=== PATIENT | female | born 1945 | race Caucasian/White ===

== ENCOUNTER 2022-03-27 17:57 | Inpatient (IN) | payer OTHER ==
[~2022-03-27] VITALS: Ht 154.9 cm; Wt 40.8 kg
[2022-03-27 18:02] VITALS: BP_SYST 149
--- NOTE | 2022-03-27 18:05 | NUR ---
DR. SHI AT BEDSIDE
--- NOTE | 2022-03-27 18:05 | NUR ---
Placed in room 3. Placed on monitor technician, blood pressure machine and pulse oximeter. To gown for exam. Side rails up. Report given to LAVELL MCKEON.
--- NOTE | 2022-03-27 18:10 | NUR ---
PATIENT FROM HOME COMPLAINING OF SHORTNESS OF BREATH TODAY AND FEELING HER HEARTBEAT FAST THE LAST 4 DAYS WELL. PATIENT TOOK INHALER TODAY WITH NO IMPROVEMENT. O2 SATURATION WAS MID 82 ON 6 L NC. PATIENT REPORTS THE LAST TIME SHE HAD A COPD EXACERBATION THIS BAD WAS 2005. PATIENT IS ABLE TO SPEAK FULL SENTENCES AND ANSWERING QUESTIONS APPROPRIATELY. PATIENT DENIES BLOOD THINNERS,CHEST PAIN, FEVER, CHILLS, NAUSEA, VOMITING, ABDOMINAL PAIN, URINARY SYMPTOMS, OR OTHER CONCERNS AT THIS TIME.
[2022-03-27] MEDS ORDERED: IPRATROPIUM/ALBUTEROL SULFATE 3 ML AMPUL.NEB (DUONEB) INH ONE ×2 (18:30→22:00)
[2022-03-27] MEDS ORDERED: methylPREDNISolone SOD SUCC/PF 62.5 MG/ML VIAL IVP ONE (18:30)
--- NOTE | 2022-03-27 18:43 | NUR ---
RT AT BEDSIDE FOR BREATHING TX. PATIENT SATING IN 92% NC ON 2 L.
--- NOTE | 2022-03-27 18:47 | NUR ---
# 20 gauge angiocath placed to rac. Use of asceptic technique. Opsite placed over site. Blood return noted. Blood for lab drawn from site. Flushed with 10 cc of normal saline. No evidence of infiltration noted. Patient tolerated well.
--- NOTE | 2022-03-27 18:50 | NUR ---
PATIENT REPORTS RELIEF AFTER BREATHING TX. 02 SATURATION IS 94% ON 2 L NC. PATIENT SPEAKING FULL SENTENCES. NO ACUTE DISTRESS NOTED.
[2022-03-27 18:54] LABS: BASOPHILS # (AUTO) 0.1 K/uL (0.0-0.2); BASOPHILS % (AUTO) 1.1 % (0.0-2.0); EOSINOPHILS % (AUTO) 0.2 % (0.0-4.0); HEMATOCRIT 37.4 % (36-48); HEMOGLOBIN 12.3 g/dL (12.0-16.0); LYMPHOCYTES # (AUTO) 0.4 K/uL (1.0-5.5); LYMPHOCYTES % (AUTO) 5.3 % (20.5-51.5); MEAN CORPUSCULAR HEMOGLOBIN 30 pg (27-31); MEAN CORPUSCULAR HGB CONC 33 % (32-36); MEAN CORPUSCULAR VOLUME 92 fL (79.0-98.0); MONOCYTES # (AUTO) 0.4 K/uL (0.0-1.0); MONOCYTES % (AUTO) 4.5 % (1.7-9.3); NEUTROPHILS % (AUTO) 88.9 % (40.0-70.0); PLATELET COUNT (AUTO) 480 K/uL (130-430); RED BLOOD CELL COUNT(AUTO) 4.08 MIL/uL (4.2-6.2); RED CELL DISTRIBUTION WIDTH 14.4 % (9.0-15.0); WHITE BLOOD COUNT (AUTO) 7.9 K/uL (4.8-10.8)
--- NOTE | 2022-03-27 19:12 | NUR ---
PATIENT ASLEEP IN [facility] WITH AT BEDSIDE. O2 SATURATION 81% WOKE UP PATIENT AND O2 SATURATION REMAINED THE SAME. DR. SHI NOTIFIED. NO ACUTE DISTRESS NOTED. RESP EVEN AND UNLABORED.
[2022-03-27 19:18] LABS: ANION GAP 5 (5-15); CALCIUM 8.5 mg/dL (8.4-11.0); CHLORIDE 100 mmol/L (98-107); CREATININE 0.98 mg/dL (0.55-1.30); GLUCOSE 147 mg/dL (70-99); POTASSIUM 4.9 mmol/L (3.5-5.1); SODIUM SERUM 137 mmol/L (136-145); UREA NITROGEN, BLOOD 27 mg/dL (8-21)
[2022-03-27 19:25] LABS: ALANINE AMINOTRANSFERASE 24 U/L (12-78); ALBUMIN 2.7 g/dL (3.4-4.8); ASPARTATE AMINOTRANSFERASE 26 U/L (10-37); TOTAL BILIRUBIN 0.1 mg/dL (0.0-1.0)
--- NOTE | 2022-03-27 19:28 | NUR ---
rec report from ALIVIA cortez
--- NOTE | 2022-03-27 19:35 | NUR ---
Pt resting in bed with at bedside. Pt awake, alert, and following commands. Pt is on NC at 2L with no signs of resp distress. Safety precautions in place and pt connected to monitor.
--- NOTE | 2022-03-27 19:35 | NUR ---
Report rec from Eboni MONTE. Pt is on NC at 2L with O2 sat at 80%. Respirations are even and unlabored with no signs of resp distress. Pt states that she does not feel short of breath and denies chest pain. Dr. Acevedo made aware of O2 sat. Pt made aware of possible admission and pt is refusing to stay. Pt is at bedside. Safety precautions are in place and pt connected to cardiac catheterization technologist.
--- NOTE | 2022-03-27 19:55 | NUR ---
CT consent form signed and completed. Information provided by the patient.
--- NOTE | 2022-03-27 19:56 | NUR ---
Pt to radiology via marina accompanied by staff.
--- NOTE | 2022-03-27 20:07 | NUR ---
Patient returned from radiology via gurney , accompanied by staff. Safety precautions in place.
--- NOTE | 2022-03-27 21:09 | NUR ---
I CALLED FAMILY MEMBER AND LEFT MESSAGE TO CALL BACK REGARDING PT AND PT'S WHO IS PRESENT IN ER.
--- NOTE | 2022-03-27 21:38 | NUR ---
Pt O2 sat continuing to drop to 70%. RT at bedside to apply BiPAP. O2 sat at 90% on BiPAP at 50%. Pt tolerating well.
[2022-03-27] MEDS ORDERED: cefTRIAXone 1 GM in D5W 50 ML IV ONE (22:00)
[2022-03-27] MEDS ORDERED: AZITHROMYCIN 250 MG TABLET PO ONE (22:00)
--- NOTE | 2022-03-27 22:00 | NUR ---
Lab at bedside drawing cultures.
[2022-03-27] MEDS ORDERED: METO25TA6 PO (22:10)
[2022-03-27] MEDS ORDERED: LISI40TA13 PO (22:10)
[2022-03-27] MEDS ORDERED: AMLO5TAB4 PO (22:11)
--- NOTE | 2022-03-27 22:11 | NUR ---
Medication reconciliation completed with information provided by patient. Any prior medication reconciliation on file was reviewed and corrected.
--- NOTE | 2022-03-27 22:11 | NUR ---
Admit bed requested Patient will be admitted to care of Admitted to ICU unit. Diagnosis Repiratory Failure, Pneumonia Inpatient (Yes or No) Yes Observation (Yes or No) No Orientation concerns or request close to nursing station (Yes or No) No Covid Status negative On vent or bipap No Isolation requirements No Needs a sitter no From Home (Yes or if No enter name of facility) yes Requires Dialysis (Yes or No) No Med Rec Completed (Yes of No) Yes
[2022-03-27] MEDS: D5/0.45 NS 1,000 ML IV SCH (22:15)
[2022-03-27] MEDS ORDERED: cefTRIAXone 1 GM VIAL ONE (22:26)
[2022-03-27] MEDS ORDERED: MORPHINE 4 MG INJ. 4 MG/ML VIAL IVP PRN (22:45)
[2022-03-27] MEDS ORDERED: ONDANSETRON HCL 4 MG/2 ML VIAL IVP PRN (22:45)
[2022-03-27] MEDS ORDERED: NALOXONE HCL 0.4 MG/ML AMP (NARCAN) IVP PRN (22:45)
[2022-03-27] MEDS ORDERED: MORPHINE 2 MG/ML INJ. SYRINGE IVP PRN (22:45)
[2022-03-27] MEDS ORDERED: LORazepam 2 MG/ML VIAL IVP PRN (22:45)
--- NOTE | 2022-03-27 23:01 | NUR ---
Pt resting bed awake. She is A&Ox4 and follows simple commands. Pt tolerating BiPAP set at 50%, O2 sat is at 97%.
--- NOTE | 2022-03-27 23:25 | NUR ---
Patient will be admitted to care of Dr. Rodgers. Admitted to ICU unit. Will go to room 4. Belongings list completed. Complete and up to date summary report printed. SBAR report given to Kem MONTE at bedside with opportunity for questions.
--- NOTE | 2022-03-27 23:30 | NUR ---
Received patient from ER to ICU bed 4. Patient is on the bipap and have no signs or symptoms of respiratory distress.
[2022-03-28] VITALS (24 sets, daily range): BP systolic 90–121
[2022-03-28 06:00] LABS: BASOPHILS % (AUTO) 0.5 % (0.0-2.0); EOSINOPHILS # (AUTO) 0.1 K/uL (0.0-0.4); EOSINOPHILS % (AUTO) 1.3 % (0.0-4.0); HEMATOCRIT 35.3 % (36-48); HEMOGLOBIN 11.4 g/dL (12.0-16.0); LYMPHOCYTES # (AUTO) 0.3 K/uL (1.0-5.5); LYMPHOCYTES % (AUTO) 6.3 % (20.5-51.5); MEAN CORPUSCULAR HEMOGLOBIN 30 pg (27-31); MEAN CORPUSCULAR HGB CONC 32 % (32-36); MEAN CORPUSCULAR VOLUME 92 fL (79.0-98.0); MONOCYTES # (AUTO) 0.1 K/uL (0.0-1.0); MONOCYTES % (AUTO) 1.1 % (1.7-9.3); NEUTROPHILS # (AUTO) 4.9 K/uL (1.8-7.7); NEUTROPHILS % (AUTO) 90.8 % (40.0-70.0); PLATELET COUNT (AUTO) 447 K/uL (130-430); RED BLOOD CELL COUNT(AUTO) 3.85 MIL/uL (4.2-6.2); RED CELL DISTRIBUTION WIDTH 14.6 % (9.0-15.0); WHITE BLOOD COUNT (AUTO) 5.3 K/uL (4.8-10.8)
[2022-03-28 06:17] LABS: ALANINE AMINOTRANSFERASE 24 U/L (12-78); ALBUMIN 2.1 g/dL (3.4-4.8); ANION GAP 4 (5-15); ASPARTATE AMINOTRANSFERASE 16 U/L (10-37); CALCIUM 8.4 mg/dL (8.4-11.0); CHLORIDE 102 mmol/L (98-107); CREATININE 0.77 mg/dL (0.55-1.30); GLUCOSE 131 mg/dL (70-99); PHOSPHORUS 5.1 mg/dL (2.7-4.5); POTASSIUM 5.2 mmol/L (3.5-5.1); SODIUM SERUM 139 mmol/L (136-145); TOTAL BILIRUBIN 0.2 mg/dL (0.0-1.0); UREA NITROGEN, BLOOD 23 mg/dL (8-21)
--- NOTE | 2022-03-28 07:15 | NUR ---
RECEIVED PATIENT IN BED #4 STABLE, IN NAD, VSS, AAOX3, REMAINS ON BIPAP WITH IPAP OF 10, EPAP OF 5, ON 50% FIO2. PT COMMUNICATES WELL, REQUESTING ASSISTANCE TO BEDPAN, ASKING HOW IS, HE IS ADMITTED WELL TO THE HOSPITAL. PT AWAITING ADDITIONAL ASSESSMENTS AND MD ROUNDING TO DETERMINE DISPOSITION WITH PLAN OF CARE.
[2022-03-28] MEDS: IPRATROPIUM BROM 0.5 MG/2.5 ML VIAL.NEB (ATROVENT) INH SCH ×5 (07:25→23:05)
[2022-03-28] MEDS: ALBUTEROL SULFATE 0.083% 2.5 MG/3 ML VIAL.NEB INH SCH ×5 (07:25→23:05)
--- NOTE | 2022-03-28 08:00 | NUR ---
NINA MAGANA AT BEDSIDE FOR ASSESSMENT.
[2022-03-28] MEDS: D5/0.45 NS 1,000 ML IV SCH ×2 (08:05→17:34)
--- NOTE | 2022-03-28 08:10 | NUR ---
RT NOTES tried pt off of bipap to 3L O2, exh. CO2 75 despite pt being awake. Will try again later. Dr Knapp was rounding, made aware, stated to try pt off of bipap later, as long as pt is awake, ok to keep off.
[2022-03-28] MEDS: BUDESONIDE 0.5 MG/2 ML AMPUL.NEB INH SCH ×2 (10:00→20:05)
--- NOTE | 2022-03-28 10:20 | NUR ---
PT REQUESTING BEDPAN. PT ABLE TO LIFT HIPS UP TO DO SO.
--- NOTE | 2022-03-28 11:35 | NUR ---
RT NOTES Pt is alert/oriented, educated on deep breathing exercises. Per Dr's order, took pt off of BIPAP and placed on 3L Nc. Exh. CO2 53. Will monitor pt.
[2022-03-28] MEDS: methylPREDNISolone SOD SUCC/PF 62.5 MG/ML VIAL IVP SCH ×2 (13:20→21:46)
--- NOTE | 2022-03-28 14:25 | NUR ---
MARINE STEAM FITTER HELPER AT BEDSIDE FOR ASSISTANCE WITH PLACEMENT OF .
--- NOTE | 2022-03-28 14:30 | NUR ---
Php Programmer SIEVE REPAIRER Jessenia responded to a Social Service Consult request for " has dementia and unable to take care of him" from Dr. Rodgers. Prior to patient contact, MESERET Carter met with SALES ORDER CLERK Thuan who shared patient's was currently in [facility]. SIEVE REPAIRER Jessenia met with patient at bedside. Patient was awake, alert and orientated x4. SIEVE REPAIRER completed introductions, reason for consult and provided business card. Patient was open to contact. Current concern- Patient currently resides in a home with her Yandel Najera who has been diagnosed with Dementia. Social- Patient has 2 children. Her son Olayinka supports patient and her by checking in with them and visiting frequently. Daughter Johanne resides outside of the home, but according to patient is not able to help due to being confined to a wheelchair after a stroke about 10 years ago. Safety- At this time the patient shares she feels safe knowing her is in the hospital. She has also requested caregiver resources. Patient shared she is still driving, and transports self and to medical appointments and to obtain household needs. In an effort to assess for appropriate resources, SIEVE REPAIRER inquired into income to which she shared she receives SSI and pension from [employer]. SIEVE REPAIRER informed her if home health is not ordered, caregiving would be private pay. SIEVE REPAIRER also explored the patient's being connected to a healthcare social worker at [facility] for additional resources. SIEVE REPAIRER encouraged patient to discuss needing more time with son to help out in the home with patient's husbands needs. Patient also provided permission to contact son to discuss opportunities for additional support. SIEVE REPAIRER and patient discussed caregiver strain and impact on personal health. SIEVE REPAIRER again encouraged patient to obtain familial support to address both her and her husbands needs to decrease impact of stress on her own health and to address her own needs. SIEVE REPAIRER will continue to be available as needed.
[2022-03-28] MEDS: AZITHROMYCIN 500 MG in NS 250 ML IV SCH (21:44)
[2022-03-28] MEDS: cefTRIAXone 1 GM IVPB PREMIX 50 ML IV SCH (21:45)
[2022-03-29] VITALS (22 sets, daily range): BP systolic 102–132
[2022-03-29] MEDS: ALBUTEROL SULFATE 0.083% 2.5 MG/3 ML VIAL.NEB INH SCH ×6 (03:10→23:00)
[2022-03-29] MEDS: IPRATROPIUM BROM 0.5 MG/2.5 ML VIAL.NEB (ATROVENT) INH SCH ×6 (03:11→23:00)
[2022-03-29] MEDS: methylPREDNISolone SOD SUCC/PF 62.5 MG/ML VIAL IVP SCH ×3 (05:50→22:26)
[2022-03-29 06:23] LABS: ANION GAP 4 (5-15); CHLORIDE 103 mmol/L (98-107); CREATININE 0.79 mg/dL (0.55-1.30); GLUCOSE 173 mg/dL (70-99); POTASSIUM 4.1 mmol/L (3.5-5.1); SODIUM SERUM 140 mmol/L (136-145); UREA NITROGEN, BLOOD 17 mg/dL (8-21)
[2022-03-29] MEDS: BUDESONIDE 0.5 MG/2 ML AMPUL.NEB INH SCH ×2 (07:00→20:00)
--- NOTE | 2022-03-29 07:00 | NUR ---
Opening Note Received report bedside via SBAR from acrobatic dancer nurse. Patient is awake and alert to person, place, time, and event. Current drips are D5 0.45NS at 100ml/hour infusing in a Right AC 20 gauge IV. The patient is currently on room air via nasal cannula at 4L/min. Patient respirations are normal and unlabored. Skin is intact and foam dressing is applied prophylactically. Patient is pleasant and has no concerns at the moment.
[2022-03-29 07:44] LABS: BASOPHILS % (AUTO) 0.1 % (0.0-2.0); HEMATOCRIT 35.6 % (36-48); HEMOGLOBIN 11.4 g/dL (12.0-16.0); LYMPHOCYTES # (AUTO) 0.4 K/uL (1.0-5.5); LYMPHOCYTES % (AUTO) 4.1 % (20.5-51.5); MEAN CORPUSCULAR HEMOGLOBIN 30 pg (27-31); MEAN CORPUSCULAR HGB CONC 32 % (32-36); MEAN CORPUSCULAR VOLUME 93 fL (79.0-98.0); MONOCYTES # (AUTO) 0.3 K/uL (0.0-1.0); MONOCYTES % (AUTO) 2.9 % (1.7-9.3); NEUTROPHILS # (AUTO) 8.1 K/uL (1.8-7.7); NEUTROPHILS % (AUTO) 92.9 % (40.0-70.0); PLATELET COUNT (AUTO) 460 K/uL (130-430); RED BLOOD CELL COUNT(AUTO) 3.85 MIL/uL (4.2-6.2); RED CELL DISTRIBUTION WIDTH 14.2 % (9.0-15.0); WHITE BLOOD COUNT (AUTO) 8.7 K/uL (4.8-10.8)
[2022-03-29 07:56] LABS: C-REACTIVE PROTEIN QUANT 2.1 mg/dL (0-0.5)
[2022-03-29 10:30] LABS: ERYTHROCYTE SEDIMENTATION RATE 30 MM/HR (0-20)
[2022-03-29] MEDS: NORMAL SALINE 5 ML DISP.SYRIN IVF SCH ×2 (13:35→22:27)
--- NOTE | 2022-03-29 14:27 | NUR ---
Dietitian Recommendations * 2 gm Na diet, Ensure Enlive TID (ONS yields 1050 kcal/day, 60 gm protein/day) * Encourage increase PO intakes LP, RD Please refer to Nutrition Assessment for details. Addendum: 03/29/22 at [address] Amended: Links added.
--- NOTE | 2022-03-29 19:30 | NUR ---
Patient Transferred to Telemetry Room 101A for alternate level of care. Patient tolerated transfer without incident. Continue to monitor.
--- NOTE | 2022-03-29 20:00 | NUR ---
ADMITTED THIS TRANSFER FROM ICU. AAOX5. COOPERATIVE. NO DISTRESS NOTED. VS CHECKED AND RECORDED. ABLE TO MAKE NEEDS KNOWN. KEPT WARM AND COMFORTABLE ON BED. IV WAS OUT REINSERTED TO LEFT FOREARM. NO COMPLAINTS MADE. DUE MEDS GIVEN AT 2100. TOLERATED WELL. ALL NEEDS ATTENDED. CALL LIGHTS PLACED WITHIN REACH. MONITORED CLOSELY.
[2022-03-29] MEDS: cefTRIAXone 1 GM IVPB PREMIX 50 ML IV SCH (20:28)
[2022-03-29] MEDS: AZITHROMYCIN 500 MG in NS 250 ML IV SCH (20:34)
[2022-03-30] VITALS (7 sets, daily range): BP systolic 100–136
[2022-03-30] MEDS: IPRATROPIUM BROM 0.5 MG/2.5 ML VIAL.NEB (ATROVENT) INH SCH ×6 (03:00→23:00)
[2022-03-30] MEDS: ALBUTEROL SULFATE 0.083% 2.5 MG/3 ML VIAL.NEB INH SCH ×6 (03:00→23:00)
--- NOTE | 2022-03-30 06:00 | NUR ---
Patient is asleep the whole night. Woke up several times to void. Uses bedpan. Inserted new PIV to left AC. Tolerated procedure well. No distress. AAox4. Repositioned self to sides independently. No discomfort noted. Kept warm and comfortable. All needs attended. Call light placed within reach. Monitored closely.
[2022-03-30] MEDS: NORMAL SALINE 5 ML DISP.SYRIN IVF SCH ×3 (06:13→21:26)
[2022-03-30] MEDS: methylPREDNISolone SOD SUCC/PF 62.5 MG/ML VIAL IVP SCH ×3 (06:13→21:27)
[2022-03-30 06:36] LABS: BASOPHILS % (AUTO) 0.1 % (0.0-2.0); HEMATOCRIT 37.7 % (36-48); HEMOGLOBIN 12.3 g/dL (12.0-16.0); LYMPHOCYTES # (AUTO) 0.3 K/uL (1.0-5.5); LYMPHOCYTES % (AUTO) 2.9 % (20.5-51.5); MEAN CORPUSCULAR HEMOGLOBIN 30 pg (27-31); MEAN CORPUSCULAR HGB CONC 33 % (32-36); MEAN CORPUSCULAR VOLUME 91 fL (79.0-98.0); MONOCYTES # (AUTO) 0.3 K/uL (0.0-1.0); MONOCYTES % (AUTO) 2.1 % (1.7-9.3); NEUTROPHILS # (AUTO) 11.3 K/uL (1.8-7.7); NEUTROPHILS % (AUTO) 94.9 % (40.0-70.0); PLATELET COUNT (AUTO) 474 K/uL (130-430); RED BLOOD CELL COUNT(AUTO) 4.13 MIL/uL (4.2-6.2); RED CELL DISTRIBUTION WIDTH 13.9 % (9.0-15.0); WHITE BLOOD COUNT (AUTO) 11.9 K/uL (4.8-10.8)
--- NOTE | 2022-03-30 08:00 | NUR ---
NOTES PATIENT AAOX 4. VITALS SIGNS STABLE. AFEBRILE. HAS OXYGEN 4 LITERS VIA NASAL CANNULA. O2 SAT 97%. LUNGS BILATERALLY WITH RHONCHI AND DIMINISHED AT THE BASES. ABDOMEN SOFT AND NON DISTENDED. HAS BREATHING TREATMENT ORDERED. CALL LIGHTS WITHIN REACH. BED LOW POSITION, ALARMED AND LOCKED. HAS IV ACCESS ON THE LEFT FROEARM #20 SALINE LOCKED. WILL CONTINUE TO MONITOR.
[2022-03-30 08:15] LABS: ALANINE AMINOTRANSFERASE 20 U/L (12-78); ALBUMIN 2.6 g/dL (3.4-4.8); ANION GAP 4 (5-15); ASPARTATE AMINOTRANSFERASE 15 U/L (10-37); C-REACTIVE PROTEIN QUANT 0.8 mg/dL (0-0.5); CALCIUM 9.1 mg/dL (8.4-11.0); CHLORIDE 104 mmol/L (98-107); CREATININE 0.84 mg/dL (0.55-1.30); GLUCOSE 126 mg/dL (70-99); SODIUM SERUM 142 mmol/L (136-145); TOTAL BILIRUBIN 0.3 mg/dL (0.0-1.0); UREA NITROGEN, BLOOD 26 mg/dL (8-21)
[2022-03-30] MEDS: BUDESONIDE 0.5 MG/2 ML AMPUL.NEB INH SCH ×2 (08:18→20:40)
--- NOTE | 2022-03-30 09:00 | NUR ---
NO DUE MEDS GIVEN AT THIS TIME.
[2022-03-30 10:56] LABS: ERYTHROCYTE SEDIMENTATION RATE 26 MM/HR (0-20)
--- NOTE | 2022-03-30 14:28 | NUR ---
PHYSICAL THERAPY: PATIENT WAS SEEN EARLIER FOR EVALUATION. SHE REQUIRES SUPERVISED USE OF THE FWW DURING GAIT AND TRANSFERS. CONTINUOUS O2 AT 3 LITERS. PATIENT IS SAFE TO AMBULATE WITH NURSING ASSISTANCE. SHE SHOULD USE THE FWW FOR STABILITY.
--- NOTE | 2022-03-30 14:58 | NUR ---
SOLUMEDROL 40 MG IV GIVEN. MADE COMFORTABLE
--- NOTE | 2022-03-30 16:05 | NUR ---
PATIENT RESTING NO PAIN NOR DISCOMFORT NOTED.
--- NOTE | 2022-03-30 18:00 | NUR ---
NO COMPLAINED MADE. PATIENT EATING DINNER. STABLE.
--- NOTE | 2022-03-30 19:00 | NUR ---
ENDORSED TO INCOMING NURSE FRANKLIN MONTE.
[2022-03-30] MEDS: cefTRIAXone 1 GM IVPB PREMIX 50 ML IV SCH (20:26)
[2022-03-30] MEDS: AZITHROMYCIN 500 MG in NS 250 ML IV SCH (21:25)
[2022-03-31] VITALS: BP_SYST 130
[2022-03-31] MEDS: IPRATROPIUM BROM 0.5 MG/2.5 ML VIAL.NEB (ATROVENT) INH SCH ×6 (03:00→22:27)
[2022-03-31] MEDS: ALBUTEROL SULFATE 0.083% 2.5 MG/3 ML VIAL.NEB INH SCH ×6 (03:00→22:27)
[2022-03-31 04:00] VITALS: BP_SYST 122
[2022-03-31] MEDS: NORMAL SALINE 5 ML DISP.SYRIN IVF SCH ×3 (06:00→21:05)
[2022-03-31] MEDS: methylPREDNISolone SOD SUCC/PF 62.5 MG/ML VIAL IVP SCH ×3 (06:00→21:06)
--- NOTE | 2022-03-31 06:15 | NUR ---
PATIENT ASLEEP THE WHOLE NIGHT WITH BOUTS OF GOING TO THE RESTROOM. NOTED PATIENT WITH LOOSE STOOLS AND SHE IS CONTINENT AND GOING TO THE RESTROOM WITH ASSIST. NO FALLS OCCURRED DURING THE SHIFT. AFEBRILE. VS STABLE. NO DISTRESS NOTED. o2 SATURATION RANGES BETWEEN 88-92%. TOLERATED iv ANTIBIOTICS WITH NO ADR NOTED. PIV REINSERTED TO RIGHT FOREARM TOLERATED PROCEDURE WELL. COMFORTABLE ON BED. ALL NEEDS ATTENDED. CALL LIGHT PLACED WITHIN REACH. MONITORED CLOSELY.
[2022-03-31 06:23] LABS: BASOPHILS % (AUTO) 0.1 % (0.0-2.0); HEMATOCRIT 37.2 % (36-48); HEMOGLOBIN 12.1 g/dL (12.0-16.0); LYMPHOCYTES # (AUTO) 0.3 K/uL (1.0-5.5); LYMPHOCYTES % (AUTO) 2.8 % (20.5-51.5); MEAN CORPUSCULAR HEMOGLOBIN 30 pg (27-31); MEAN CORPUSCULAR HGB CONC 32 % (32-36); MEAN CORPUSCULAR VOLUME 92 fL (79.0-98.0); MONOCYTES # (AUTO) 0.2 K/uL (0.0-1.0); MONOCYTES % (AUTO) 2.1 % (1.7-9.3); PLATELET COUNT (AUTO) 418 K/uL (130-430); RED BLOOD CELL COUNT(AUTO) 4.07 MIL/uL (4.2-6.2); RED CELL DISTRIBUTION WIDTH 14.4 % (9.0-15.0); WHITE BLOOD COUNT (AUTO) 9.5 K/uL (4.8-10.8)
[2022-03-31 07:06] LABS: ANION GAP 1 (5-15); CALCIUM 8.7 mg/dL (8.4-11.0); CHLORIDE 104 mmol/L (98-107); CREATININE 0.77 mg/dL (0.55-1.30); GLUCOSE 112 mg/dL (70-99); POTASSIUM 4.5 mmol/L (3.5-5.1); SODIUM SERUM 143 mmol/L (136-145); UREA NITROGEN, BLOOD 35 mg/dL (8-21)
[2022-03-31] MEDS: BUDESONIDE 0.5 MG/2 ML AMPUL.NEB INH SCH ×2 (07:18→20:25)
[2022-03-31 07:35] LABS: C-REACTIVE PROTEIN QUANT < 0.2 mg/dL (0-0.5)
[2022-03-31 08:00] VITALS: BP_SYST 134
--- NOTE | 2022-03-31 08:00 | NUR ---
Initial Notes Patient is awake, alert, and oriented. Patient is able to ambulate to restroom. Vital signs obtained, patient on 3L O2 via Nasal cannula. Spo2 is 99%. No complaints of pain. No respiratory distress noted. Patient is eating breakfast. Safety precautions in place and call light within reach. Patient aware to call for assistance.
[2022-03-31 11:28] LABS: ERYTHROCYTE SEDIMENTATION RATE 16 MM/HR (0-20)
[2022-03-31 12:00] VITALS: BP_SYST 124
--- NOTE | 2022-03-31 12:00 | NUR ---
Nutrition F/U Admitting Diagnosis Respiratory failure, pneumonia Reviewed Pertinent Medical/Surgical Hx Medical Record Other Medical History Comment: PMH: COPD/interstitial lung Dz and HTN per physician notes SARS-CoV-2 Ag (Rapid) Negative 03/27 Subjective Information: RD met w/ pt at bedside this afternoon. Pt reported OK appetite and avoidance of high-fiber foods d/t diarrhea the past 3 days, which seems to be lessening. Pt reported that she is enjoying Ensure Enlive and would like to continue ONS. Pt reported current diet texture is fine, no difficulties w/ chewing/swallowing. Per EMR review, PO intake average of 73% x5 meal records; LBM x3 03/30, loose stools overnight noted; Kameron scale: 19 w/ erythema and rash on proximal buttocks. Current diet is adequate/appropriate. Nutrition education declined when offered by this RD. Current Diet Order/Nutrition Support: 2 gm Na, Ensure Enlive TID x2 days Patient/Significant Other Able To Verbalize Education Provided Not Indicated Pertinent Medications:azithromycin/NS IV, solu-medrol Pertinent Labs: BG 112 H, CRP <0.2 WNL, BUN 35 H Height (Feet) 5 feet Height (Inches) 1.00 inches Weight (Pounds) 90 pounds -- stable since 03/29 Patient Weight 40.823 kg Body Mass Index 17.00 kg/m2 %IBW 86 [place]/Adjusted Body Weight 105#/47.7 kg Recent Weight Change Unable to verify Weight Status Underweight Food Allergies Unable to verify Estimated Energy Expenditure (kcals/day) 9432-2909 (30-35 kcal/kg IBW d/t COPD, wt gain promotion) Estimated Protein Required (g/day) 62-95 (1.3-2 gm/kg IBW d/t COPD, wt gain promotion) Estimated Fluid Required (l/day) 1-1.2 (25-30 ml/kg CBW d/t GERIAT maintenance) Problem/Etiology/Signs/Symptoms Risk for malnutrition R/T catabolic condition AEB Hx of COPD, increased nutritional needs for COPD, BMI: 17 kg/m2, and 86% of IBW. *Ongoing, improvement w/ fair PO intake records Expected Outcomes/Goals - Monitor appetite and PO intakes w/ goal of pt meeting >75% of estimated nutritional needs, labs trending WNL, normal GI function, and skin integrity/wt maintenance Dietitian Recommendations * Continue 2 gm Na diet, Ensure Enlive TID (ONS yields 1050 kcal/day, 60 gm protein/day) * Encourage increase PO intakes Follow Up Moderate Risk: F/U in 3-5 days
--- NOTE | 2022-03-31 12:00 | NUR ---
Dietitian Recommendations * Continue 2 gm Na diet, Ensure Enlive TID (ONS yields 1050 kcal/day, 60 gm protein/day) * Encourage increase PO intakes LP, RD Please refer to Nutrition F/U for details.
--- NOTE | 2022-03-31 13:00 | NUR ---
Notes Assisted patient to restroom, tolerated well. Patient SPo2 at 93- 94% on 3L O2 via nasal cannula. No distress or pain. Patient back in bed, Safety precautions in place and call light in hand.
[2022-03-31 16:00] VITALS: BP_SYST 117
--- NOTE | 2022-03-31 16:00 | NUR ---
Notes Patient is resting, eyes closed. No respiratory distress noted. No facial grimace noted. Safety precautions in place and call light within reach.
--- NOTE | 2022-03-31 18:30 | NUR ---
Closing notes Patient is eating dinner. No complaints of pain, no respiratory distress noted. Spo2 @ 93- 94% via nasal cannula @ 3L O2. Safety precautions in place and call light within reach.
[2022-03-31] MEDS: cefTRIAXone 1 GM IVPB PREMIX 50 ML IV SCH (20:17)
[2022-03-31] MEDS: AZITHROMYCIN 500 MG in NS 250 ML IV SCH (21:06)
[2022-04-01 00:28] VITALS: BP_SYST 112
[2022-04-01] MEDS: ALBUTEROL SULFATE 0.083% 2.5 MG/3 ML VIAL.NEB INH SCH ×6 (03:00→23:50)
[2022-04-01] MEDS: IPRATROPIUM BROM 0.5 MG/2.5 ML VIAL.NEB (ATROVENT) INH SCH ×6 (03:00→23:50)
[2022-04-01 04:00] VITALS: BP_SYST 126
[2022-04-01] MEDS: NORMAL SALINE 5 ML DISP.SYRIN IVF SCH ×3 (05:39→20:11)
[2022-04-01] MEDS: methylPREDNISolone SOD SUCC/PF 62.5 MG/ML VIAL IVP SCH ×3 (05:40→20:10)
--- NOTE | 2022-04-01 05:47 | NUR ---
PATIENT ASLEEP AND COMFORTABLE ON BED. AFEBRILE. VS STABLE. NO DISTRESS OR DISCOMFORT NOTED. PATIENT IS UP AND ABOUT TO THE BATHROOM AT TIMES. ASSISTED TO THE BATHROOM BECAUSE SHE IS UNSTEADY AND WEAK. AAOX4. ABLE TO MAKE NEEDS KNOWN. PIV TO RIGHT FOREARM IN PLACE AND FLUSHING WELL. NO DISTRESS NOR DISCOMFORT NOTED. ALL NEEDS ATTENDED. CALL LIGHT PLACED WITHIN REACH. KEPT OBSERVED CLOSELY.
[2022-04-01 07:03] LABS: BASOPHILS % (AUTO) 0.1 % (0.0-2.0); HEMATOCRIT 36.6 % (36-48); HEMOGLOBIN 11.9 g/dL (12.0-16.0); LYMPHOCYTES # (AUTO) 0.1 K/uL (1.0-5.5); LYMPHOCYTES % (AUTO) 1.7 % (20.5-51.5); MEAN CORPUSCULAR HEMOGLOBIN 30 pg (27-31); MEAN CORPUSCULAR HGB CONC 33 % (32-36); MEAN CORPUSCULAR VOLUME 91 fL (79.0-98.0); MONOCYTES # (AUTO) 0.1 K/uL (0.0-1.0); MONOCYTES % (AUTO) 1.5 % (1.7-9.3); NEUTROPHILS # (AUTO) 7.7 K/uL (1.8-7.7); NEUTROPHILS % (AUTO) 96.7 % (40.0-70.0); PLATELET COUNT (AUTO) 396 K/uL (130-430); RED BLOOD CELL COUNT(AUTO) 4.01 MIL/uL (4.2-6.2); RED CELL DISTRIBUTION WIDTH 14.4 % (9.0-15.0); WHITE BLOOD COUNT (AUTO) 7.9 K/uL (4.8-10.8)
[2022-04-01] MEDS: BUDESONIDE 0.5 MG/2 ML AMPUL.NEB INH SCH ×2 (07:26→21:19)
[2022-04-01 07:53] LABS: ANION GAP 1 (5-15); CALCIUM 8.4 mg/dL (8.4-11.0); CHLORIDE 104 mmol/L (98-107); CREATININE 0.73 mg/dL (0.55-1.30); GLUCOSE 128 mg/dL (70-99); SODIUM SERUM 142 mmol/L (136-145); UREA NITROGEN, BLOOD 34 mg/dL (8-21)
[2022-04-01 07:58] LABS: C-REACTIVE PROTEIN QUANT < 0.2 mg/dL (0-0.5)
[2022-04-01 08:00] VITALS: BP_SYST 133
--- NOTE | 2022-04-01 08:00 | NUR ---
Initial Notes Patient is awake, alert, and oriented. No complaints of chest pain. Patient denies any SOB. Breathing is even and non labored. Patient is on 3L O2 via nasal cannula. Spo2 at 93%. Patient ambulatory. Patient is sitting in bed, eating breakfast. Safety precautions in place and call light within reach.
[2022-04-01 09:55] LABS: ERYTHROCYTE SEDIMENTATION RATE 12 MM/HR (0-20)
[2022-04-01] MEDS ORDERED: AZIT500T10 PO (10:28)
[2022-04-01] MEDS ORDERED: SPIRIVA INH (10:28)
[2022-04-01] MEDS ORDERED: PRED20TA PO (10:28)
[2022-04-01] MEDS ORDERED: BUDE6HFA INH (10:28)
--- NOTE | 2022-04-01 11:00 | NUR ---
CM: Informed and faxed the dc/HH order to alicia Allen at [facility] # [phone] [facility], stated she will contact Jesika and the dcp dept to call me back to update the HH arrangement.
[2022-04-01 12:00] VITALS: BP_SYST 114
--- NOTE | 2022-04-01 12:00 | NUR ---
Notes Assisted the patient to the restroom, ambulated well, gait steady. No SOB. Patient back in bed, eating lunch. No complaints of pain. No respiratory distress noted. Safety precautions in place and call light within reach.
[2022-04-01 16:00] VITALS: BP_SYST 138
--- NOTE | 2022-04-01 16:00 | NUR ---
Notes Patient in bed, watching television. No complaints of pain. No distress noted. SPo2 91% with 3L O2 via NC. Safety precautions in place and call light within reach.
--- NOTE | 2022-04-01 18:36 | NUR ---
Closing Notes Patient is eating dinner, HOB is elevated. No complaints of pain, no distress noted. No SOB. Patient on NC @ 3 L. SPo2 at 93%. breathing even and non labored. Safety precautions in place and call light within reach.
[2022-04-01 20:00] VITALS: BP_SYST 143
[2022-04-01] MEDS: cefTRIAXone 1 GM IVPB PREMIX 50 ML IV SCH (20:09)
[2022-04-02 00:05] VITALS: BP_SYST 138
[2022-04-02] MEDS: ALBUTEROL SULFATE 0.083% 2.5 MG/3 ML VIAL.NEB INH SCH ×6 (03:00→23:37)
[2022-04-02] MEDS: IPRATROPIUM BROM 0.5 MG/2.5 ML VIAL.NEB (ATROVENT) INH SCH ×6 (03:00→23:38)
[2022-04-02 04:25] VITALS: BP_SYST 133
--- NOTE | 2022-04-02 05:30 | NUR ---
PATIENT REMAINS ASLEEP ON BED. VS STABLE, NO DISTRESS NOTED. AAOX3-4. ABLE TO MAKE NEEDS KNOWN. PATIENT CAN WALK TO THE BATHROOM WITH ASSIST. REMAINS ON 3 LPM NASAL CANNULA. TOLERATED WELL. O2 SATURATION RANGES BETWEEN 88-92%. PIV TO RIGHT FOREARM INTACT AND FLUSHING WELL. VOIDING AND STOOLING WELL. ALL NEEDS ATTENDED. CALL LIGHT PLACED WITHIN REACH MONITORED CLOSELY.
[2022-04-02] MEDS: NORMAL SALINE 5 ML DISP.SYRIN IVF SCH ×3 (05:35→21:49)
[2022-04-02 06:37] LABS: HEMATOCRIT 34.5 % (36-48); HEMOGLOBIN 11.3 g/dL (12.0-16.0); LYMPHOCYTES # (AUTO) 0.2 K/uL (1.0-5.5); LYMPHOCYTES % (AUTO) 2.1 % (20.5-51.5); MEAN CORPUSCULAR HEMOGLOBIN 30 pg (27-31); MEAN CORPUSCULAR HGB CONC 33 % (32-36); MEAN CORPUSCULAR VOLUME 90 fL (79.0-98.0); MONOCYTES # (AUTO) 0.2 K/uL (0.0-1.0); MONOCYTES % (AUTO) 2.6 % (1.7-9.3); NEUTROPHILS # (AUTO) 8.3 K/uL (1.8-7.7); NEUTROPHILS % (AUTO) 95.3 % (40.0-70.0); PLATELET COUNT (AUTO) 335 K/uL (130-430); RED BLOOD CELL COUNT(AUTO) 3.82 MIL/uL (4.2-6.2); RED CELL DISTRIBUTION WIDTH 14.3 % (9.0-15.0); WHITE BLOOD COUNT (AUTO) 8.7 K/uL (4.8-10.8)
[2022-04-02 07:06] LABS: ALANINE AMINOTRANSFERASE 18 U/L (12-78); ALBUMIN 2.2 g/dL (3.4-4.8); ANION GAP -2 (5-15); ASPARTATE AMINOTRANSFERASE 16 U/L (10-37); CALCIUM 8.7 mg/dL (8.4-11.0); CHLORIDE 101 mmol/L (98-107); CREATININE 0.68 mg/dL (0.55-1.30); GLUCOSE 120 mg/dL (70-99); POTASSIUM 4.7 mmol/L (3.5-5.1); SODIUM SERUM 136 mmol/L (136-145); TOTAL BILIRUBIN 0.2 mg/dL (0.0-1.0); UREA NITROGEN, BLOOD 34 mg/dL (8-21)
[2022-04-02] MEDS: BUDESONIDE 0.5 MG/2 ML AMPUL.NEB INH SCH ×2 (07:30→21:15)
[2022-04-02 07:57] LABS: C-REACTIVE PROTEIN QUANT < 0.2 mg/dL (0-0.5)
[2022-04-02 08:00] VITALS: BP_SYST 134
[2022-04-02 08:56] VITALS: BP_SYST 133
[2022-04-02] MEDS: methylPREDNISolone SOD SUCC/PF 62.5 MG/ML VIAL IVP SCH ×2 (09:13→21:50)
[2022-04-02 10:11] LABS: ERYTHROCYTE SEDIMENTATION RATE 9 MM/HR (0-20)
--- NOTE | 2022-04-02 10:40 | NUR ---
[facility]/HCP CM MS JEMMA REID WAS CALLED RE: TO ARRANGE HOME HEALTH FOR HOME O2/MED RECON, DME FWW.
[2022-04-02 11:27] VITALS: BP_SYST 141
--- NOTE | 2022-04-02 11:59 | NUR ---
Discharge appointments and vendors arranged by [facility]. Dr[phone] #[id number] [facility] FWW will be deliver to bedside and home O2 portable to bedside and concentrator to home Agency will call and schedule visit. Please call Patient Support Center [phone] for worsening symptoms or trouble getting your medicine. For care needs when provider office is closed, contact Kayden [facility] [place] [phone] or Sophie [facility] [phone]. Addendum: 04/02/22 at 1443 by Michelle Sharpe RN home health will be provided by [facility] [phone] Addendum: 04/05/22 at 1552 by Michelle Sharpe RN Patient PDV appt has been scheduled Patient: NIKKI SORENSEN Provider: SOHEILA INFANTE MD Provider Date and Time: 04/12/2022 10:40 AM Addendum: 04/05/22 at 1555 by Michelle Sharpe RN PDV appt for incorrect patient document please disregard
[2022-04-02 16:04] VITALS: BP_SYST 136
[2022-04-02] MEDS: cefTRIAXone 1 GM IVPB PREMIX 50 ML IV SCH (21:50)
[2022-04-02 22:06] LABS: MYCOPLASMA PNEUMONIAE IgM <770 U/mL (0-769)
[2022-04-03 00:45] VITALS: BP_SYST 129
[2022-04-03] MEDS: IPRATROPIUM BROM 0.5 MG/2.5 ML VIAL.NEB (ATROVENT) INH SCH ×6 (03:00→23:17)
[2022-04-03] MEDS: ALBUTEROL SULFATE 0.083% 2.5 MG/3 ML VIAL.NEB INH SCH ×6 (03:00→23:17)
[2022-04-03 04:05] VITALS: BP_SYST 122
[2022-04-03] MEDS: NORMAL SALINE 5 ML DISP.SYRIN IVF SCH ×3 (05:25→20:36)
--- NOTE | 2022-04-03 06:00 | NUR ---
PATIENT WAS ASLEEP ALL NIGHT WITH OCCASIONAL WALK TO THE BATHROOM. REMAINS ON 3 LPM NC. TOLERATED WELL. O2 SATS RANGES BETWEEN 89-96%. KEPT WARM AND COMFORTABLE ON BED. NO DISTRESS NOR DISCOMFORT NOTED. SALINE LOCK IN PLACE AND PATENT ON RIGHT FOREARM. VOIDING AND STOOLING WELL. ALL NEEDS ATTENDED. CALL LIGHT PLACED WITHIN REACH. KEPT OBSERVED CLOSELY.
[2022-04-03 06:46] LABS: BASOPHILS % (AUTO) 0.2 % (0.0-2.0); HEMATOCRIT 35.1 % (36-48); HEMOGLOBIN 11.5 g/dL (12.0-16.0); LYMPHOCYTES # (AUTO) 0.2 K/uL (1.0-5.5); LYMPHOCYTES % (AUTO) 1.7 % (20.5-51.5); MEAN CORPUSCULAR HEMOGLOBIN 29 pg (27-31); MEAN CORPUSCULAR HGB CONC 33 % (32-36); MEAN CORPUSCULAR VOLUME 90 fL (79.0-98.0); MONOCYTES # (AUTO) 0.2 K/uL (0.0-1.0); MONOCYTES % (AUTO) 1.8 % (1.7-9.3); NEUTROPHILS # (AUTO) 8.8 K/uL (1.8-7.7); NEUTROPHILS % (AUTO) 96.3 % (40.0-70.0); PLATELET COUNT (AUTO) 306 K/uL (130-430); RED BLOOD CELL COUNT(AUTO) 3.91 MIL/uL (4.2-6.2); WHITE BLOOD COUNT (AUTO) 9.2 K/uL (4.8-10.8)
[2022-04-03 07:23] LABS: C-REACTIVE PROTEIN QUANT 0.3 mg/dL (0-0.5); CALCIUM 8.2 mg/dL (8.4-11.0); CHLORIDE 103 mmol/L (98-107); CREATININE 0.66 mg/dL (0.55-1.30); GLUCOSE 112 mg/dL (70-99); SODIUM SERUM 143 mmol/L (136-145); UREA NITROGEN, BLOOD 42 mg/dL (8-21)
[2022-04-03 07:43] LABS: ANION GAP < 3 (5-15)
[2022-04-03 08:00] VITALS: BP_SYST 128
[2022-04-03] MEDS: BUDESONIDE 0.5 MG/2 ML AMPUL.NEB INH SCH ×2 (08:11→19:56)
[2022-04-03] MEDS: methylPREDNISolone SOD SUCC/PF 62.5 MG/ML VIAL IVP SCH ×2 (08:31→20:36)
[2022-04-03 09:36] LABS: ERYTHROCYTE SEDIMENTATION RATE 7 MM/HR (0-20)
[2022-04-03 11:26] VITALS: BP_SYST 132
[2022-04-03 15:52] VITALS: BP_SYST 140
[2022-04-03] MEDS: cefTRIAXone 1 GM IVPB PREMIX 50 ML IV SCH (20:36)
[2022-04-03 23:38] VITALS: BP_SYST 126
[2022-04-04] VITALS (7 sets, daily range): BP systolic 110–154
[2022-04-04] MEDS: ALBUTEROL SULFATE 0.083% 2.5 MG/3 ML VIAL.NEB INH SCH ×6 (03:00→23:58)
[2022-04-04] MEDS: IPRATROPIUM BROM 0.5 MG/2.5 ML VIAL.NEB (ATROVENT) INH SCH ×6 (03:00→23:58)
--- NOTE | 2022-04-04 05:11 | NUR ---
PATIENT STABLE THE WHOLE NIGHT. ASSISTED TO GO TO THE BATHROOM ON SEVERAL OCCASIONS. AAOX4. ABLE TO MAKE NEEDS KNOWN. NO DISTRESS NOR DISCOMFORT NOTED. SALINE LOCK TO RIGHT FOREARM INTACT AND FLUSHING WELL. VOIDING AND STOOLING WELL. VS STABLE. AFEBRILE. REMAINS ON NC AT 3 LPM. O2 SATS RANGES BETWEEN 88-94%. KEPT WARM AND COMFORTABLE ON BED. CALL LIGHT PLACED WITHIN REACH. ALL NEEDS ATTENDED. MONITORED CLOSELY.
[2022-04-04] MEDS: NORMAL SALINE 5 ML DISP.SYRIN IVF SCH ×3 (05:22→20:41)
[2022-04-04 07:09] LABS: BASOPHILS % (AUTO) 0.1 % (0.0-2.0); HEMATOCRIT 33.4 % (36-48); HEMOGLOBIN 10.9 g/dL (12.0-16.0); LYMPHOCYTES # (AUTO) 0.2 K/uL (1.0-5.5); LYMPHOCYTES % (AUTO) 2.1 % (20.5-51.5); MEAN CORPUSCULAR HEMOGLOBIN 30 pg (27-31); MEAN CORPUSCULAR HGB CONC 33 % (32-36); MEAN CORPUSCULAR VOLUME 91 fL (79.0-98.0); MONOCYTES # (AUTO) 0.2 K/uL (0.0-1.0); MONOCYTES % (AUTO) 2.4 % (1.7-9.3); NEUTROPHILS # (AUTO) 7.3 K/uL (1.8-7.7); NEUTROPHILS % (AUTO) 95.4 % (40.0-70.0); PLATELET COUNT (AUTO) 270 K/uL (130-430); RED BLOOD CELL COUNT(AUTO) 3.69 MIL/uL (4.2-6.2); RED CELL DISTRIBUTION WIDTH 14.1 % (9.0-15.0); WHITE BLOOD COUNT (AUTO) 7.7 K/uL (4.8-10.8)
[2022-04-04] MEDS: BUDESONIDE 0.5 MG/2 ML AMPUL.NEB INH SCH ×2 (07:13→23:58)
[2022-04-04 07:47] LABS: ANION GAP 1 (5-15); CALCIUM 8.1 mg/dL (8.4-11.0); CHLORIDE 103 mmol/L (98-107); CREATININE 0.75 mg/dL (0.55-1.30); GLUCOSE 109 mg/dL (70-99); POTASSIUM 4.9 mmol/L (3.5-5.1); SODIUM SERUM 144 mmol/L (136-145); UREA NITROGEN, BLOOD 38 mg/dL (8-21)
[2022-04-04] MEDS: methylPREDNISolone SOD SUCC/PF 62.5 MG/ML VIAL IVP SCH ×2 (08:32→20:41)
[2022-04-04 09:31] LABS: ERYTHROCYTE SEDIMENTATION RATE 7 MM/HR (0-20)
--- NOTE | 2022-04-04 09:45 | NUR ---
Logo Admission Assessment - Care Management Last Saved By: Michelle Sharpe Last Saved On: 04/04/2022 9:45 AM (PT) Created By: Michelle Sharpe Created On: 04/04/2022 9:44 AM (PT) Patient Information Patient Name: DURGA REYES [address]: [address] [place] [id number] SSN: : 1945 (age 76 years) Work Phone: [phone] Gender: Female Alternative Phone: Marital Status: Race: WHITE- Race 2: Ethnicity: Declined Ethnicity 2: Patient's Information Who was Interviewed? Answers: Patient What language does the patient speak? Answers: Occitan Admitting Facility Answers: *[facility] [[id number]] Admitting Diagnosis SOB, PNA Advanced Care Planning (check all that apply) Answers: Advanced Directives? Notes: yes Additional Patient Notes Covid vaxxine: non vaccinated History and Prior Level of Function DME--PRIOR to Admission: Answers: No DME Cognitive--PRIOR to Admission: Answers: Alert & Orientated Home Setting--PRIOR to Admission: Answers: Private Home Notes: 2 story home lives with spouse Was patient receiving Home Health Services prior to Admission? 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 (indicate barrier & plan to address) Answers: NO, anticipate DC to previous living situations, no additional services anticipated Signature Signature: Signature Date Signed: 04/04/2022 9:45 AM (PT) Signed By: Michelle Sharpe Position: Inpatient Medical Oncologist Pager Number: [employer]scripts Generated (Scan) Page 1 of Copyright 2021 [employer]. [Production(yh--[id number])]
[2022-04-04 10:16] LABS: C-REACTIVE PROTEIN QUANT < 0.2 mg/dL (0-0.5)
--- NOTE | 2022-04-04 12:30 | NUR ---
Pharmacy Clerk REGIONAL SALES EXECUTIVE Jessenia responded to a request for social service support to address patient's support system and safe discharge. REGIONAL SALES EXECUTIVE Jessenia met with patient at bedside. Patient was sitting up, eating lunch, alert and orientated x4 and remembered this REGIONAL SALES EXECUTIVE from ICU contact. Current concern- Patient being home alone following discharge REGIONAL SALES EXECUTIVE and Patient revisited her being the primary caregiver for her who has dementia and is currently inpatient at [facility]. Patient shared her son Olayinka will be providing more support including coming to the home more often. She also shared her neighbor Carmine Shannon and Olayinka have discussed providing additional support to the patient and her . REGIONAL SALES EXECUTIVE and Patient discussed private caregiving and dementia care options, and patient stated she is aware this will be private pay. She shares she both her and her receive Social Security benefits, as well as her receives income from 2 pensions. REGIONAL SALES EXECUTIVE and Patient discussed resources and safe discharge. Patient stated she feels safe discharging home with the supports she has in place at this time. She states she is aware she is awaiting delivery of a FWW and expresses her understanding of needing home O2. REGIONAL SALES EXECUTIVE provided the following Resources to patient: - Alzheimer Support Package - Home Care Resource Packet - Adult Day Care Resource Packet - Lifestyles Booklet REGIONAL SALES EXECUTIVE will continue to be available as needed
[2022-04-05] VITALS: BP_SYST 130
--- NOTE | 2022-04-05 02:44 | NUR ---
PATIENT REMAINS ASLEEP. NO DISTRESS NOR DISCOMFORT NOTED. AFEBRILE. VS STABLE. REMAINS ON NC AT 3 LPM. TOLERATING WELL. NO SOB NOTED. VOIDING WELL, NO BM NOTED. KEPT WARM AND COMFORTABLE. ALL NEEDS ATTENDED. CALL LIGHT PLACED WITHIN REACH. REPORT GIVEN TO MERCEDES MONTE AT 0300.
--- NOTE | 2022-04-05 02:45 | NUR ---
Continuity of care Pt asleep, no s/s distress noted. On O2 3L via NC. Received report from LAVELL Hdz. Pt's O2 and FWW for home use at bedside. Call light within reach. Safety maintained. To monitor.
[2022-04-05] MEDS: IPRATROPIUM BROM 0.5 MG/2.5 ML VIAL.NEB (ATROVENT) INH SCH ×3 (03:32→11:13)
[2022-04-05] MEDS: ALBUTEROL SULFATE 0.083% 2.5 MG/3 ML VIAL.NEB INH SCH ×3 (03:33→11:13)
[2022-04-05] MEDS: NORMAL SALINE 5 ML DISP.SYRIN IVF SCH (05:37)
[2022-04-05 06:48] LABS: BASOPHILS % (AUTO) 0.1 % (0.0-2.0); HEMATOCRIT 33.4 % (36-48); LYMPHOCYTES # (AUTO) 0.2 K/uL (1.0-5.5); LYMPHOCYTES % (AUTO) 2.5 % (20.5-51.5); MEAN CORPUSCULAR HEMOGLOBIN 30 pg (27-31); MEAN CORPUSCULAR HGB CONC 33 % (32-36); MEAN CORPUSCULAR VOLUME 90 fL (79.0-98.0); MONOCYTES # (AUTO) 0.2 K/uL (0.0-1.0); MONOCYTES % (AUTO) 2.5 % (1.7-9.3); NEUTROPHILS # (AUTO) 7.7 K/uL (1.8-7.7); NEUTROPHILS % (AUTO) 94.9 % (40.0-70.0); PLATELET COUNT (AUTO) 242 K/uL (130-430); RED BLOOD CELL COUNT(AUTO) 3.71 MIL/uL (4.2-6.2); RED CELL DISTRIBUTION WIDTH 14.1 % (9.0-15.0); WHITE BLOOD COUNT (AUTO) 8.1 K/uL (4.8-10.8)
[2022-04-05] MEDS: BUDESONIDE 0.5 MG/2 ML AMPUL.NEB INH SCH (07:07)
[2022-04-05 08:00] VITALS: BP_SYST 124
--- NOTE | 2022-04-05 08:00 | NUR ---
Initial Notes Patient is awake, alert, and oriented. patient denies any shortness of breath or pain. No respiratory distress noted. Breathing is even and non labored. Patient is on 2 L O2 via nasal cannula. Spo2 at 98%. Patient is ambulatory. Patient aware to call for assistance when needed. Safety precautions in place and call light within reach.
[2022-04-05 08:17] LABS: CALCIUM 8.3 mg/dL (8.4-11.0); CHLORIDE 99 mmol/L (98-107); CREATININE 0.64 mg/dL (0.55-1.30); GLUCOSE 115 mg/dL (70-99); POTASSIUM 4.9 mmol/L (3.5-5.1); SODIUM SERUM 138 mmol/L (136-145); UREA NITROGEN, BLOOD 37 mg/dL (8-21)
[2022-04-05 08:28] LABS: ANION GAP < 3 (5-15)
--- NOTE | 2022-04-05 09:15 | NUR ---
Court Officer MESERET Ruelas provided update on patient's supports and her plan following discharge to care for both her and her spouse to Vest T[employer]or Mickey.
[2022-04-05] MEDS: methylPREDNISolone SOD SUCC/PF 62.5 MG/ML VIAL IVP SCH (09:25)
[2022-04-05 10:09] VITALS: BP_SYST 124
--- NOTE | 2022-04-05 12:20 | NUR ---
Discharge Patient is awake, alert, and oriented. Ambulatory with steady gait. Patient denies any shortness of breath. No respiratory distress noted. Patient Spo2 is at 98% via nasal cannula at 2 L O2. Patient denies any pain or discomfort. Patient given discharge instructions and medication prescription. Patient verbalized understanding. Patient in stable condition. IV taken out, no active bleeding. Dressing on. ID band removed. All belongings sent with patient. All durable equipment sent with patient.
--- NOTE | 2022-04-13 15:06 | NUR ---
[employer] BUSINESS OPERATIONS MANAGER made a Post Discharge Follow-Up Phone Call to former pt. Juliet, but did not answer the phone. BUSINESS OPERATIONS MANAGER called Juliet's son, Olaynika who stated his mom is doing much better, received her FWW, is getting HH and has O2 and two [email or web address] BUSINESS OPERATIONS MANAGER thanked him for this update.
== END 2022-04-05 12:20 | disposition home health service (06) | DRG 871 ==
LOC: SED 17:57 → SIC 22:01 → STU 03-29 21:31
PROVIDERS: ADMIT Preventive Medicine Preventive Medicine/Occupational Environmental Medicine; ATTEND Preventive Medicine Preventive Medicine/Occupational Environmental Medicine
PROC: 5A09357 Assistance with Respiratory Ventilation, Less than 24 Consecutive Hours, Continuous Positive Airway Pressure (ICD-10-PCS; principal; 2022-03-27)
DX: A41.9 Sepsis, unspecified organism (principal); J18.9 Pneumonia, unspecified organism; J96.22 Acute and chronic respiratory failure with hypercapnia; J96.21 Acute and chronic respiratory failure with hypoxia; E43 Unspecified severe protein-calorie malnutrition; J44.1 Chronic obstructive pulmonary disease with (acute) exacerbation; J44.0 Chronic obstructive pulmonary disease with (acute) lower respiratory infection; E87.2 Acidosis; D75.839 Thrombocytosis, unspecified; R73.9 Hyperglycemia, unspecified; E88.09 Other disorders of plasma-protein metabolism, not elsewhere classified; R53.81 Other malaise; D64.9 Anemia, unspecified; Z20.822 Contact with and (suspected) exposure to COVID-19; E83.51 Hypocalcemia; E83.52 Hypercalcemia; I10 Essential (primary) hypertension; Z87.891 Personal history of nicotine dependence
CPT/HCPCS: 36415; 36600; 71045; 71275; 76376; 80048; 80053; 82803-TC; 83605; 83735; 83880; 84100; 84484; 85025; 85379; 85651-TC; 86140; 86738; 87040; 87449; 93005; 94640; 94660; 94760; 96365; 96375; 99291; G0378; J0456; J0696; J2930; J7050; J7613; J7626; Q9967; U0003